=== PATIENT | male | born 1945 | race Caucasian/White ===

== ENCOUNTER 2024-12-06 15:19 | Inpatient (IN) | payer MEDICARE ==
[~2024-12-06] VITALS: Ht 180.3 cm; Wt 94.3 kg
[2024-12-06 11:14] VITALS: BP 128/80; TEMP 97.9; O2SAT 95
[2024-12-06] MEDS: LIDOCAINE 2% 5ML JELLY UROJET TOP ONE ×2 (15:55→20:35)
[2024-12-06] MEDS: UNRESOLVED CLARIFICATION ENTRY XX SCH (16:32)
[2024-12-06 16:58] LABS: BASO # 0.1 10^3/uL (0.0-0.2); BASO % 0.3 % (0.0-1.0); EOS % 0.1 % (0.0-3.0); HEMATOCRIT 47.8 % (42.0-52.0); HEMOGLOBIN 15.7 g/dl (13.5-17.5); LYMPH % 5.8 % (24.0-44.0); MEAN CORPUSCULAR HEMOGLOBIN 30.5 pg (27.0-33.0); MEAN CORPUSCULAR HGB CONC 32.8 g/dl (32.0-36.5); MONO # 1.1 10^3/uL (0.0-0.8); MONO % 6.2 % (2.0-8.0); NEUTROPHILS # 15.1 10^3/uL (1.5-8.5); NEUTROPHILS % 86.6 % (36.0-66.0); PLATELET COUNT, AUTOMATED 152 10^3/uL (150-450); RED BLOOD COUNT 5.14 10^6/uL (4.30-6.10); WHITE BLOOD COUNT 17.5 10^3/uL (4.0-10.0)
[2024-12-06 17:08] LABS: INR 1.26; PARTIAL THROMBOPLASTIN TIME 28.5 SECONDS (24.8-34.2)
[2024-12-06 17:21] LABS: ALBUMIN 3.6 G/DL (3.2-5.2); ALKALINE PHOSPHATASE 73 U/L (40-129); ALT/SGPT 17 U/L (7.0-40); AST/SGOT 20 U/L (<34); BILIRUBIN,TOTAL 0.6 MG/DL (0.3-1.2); BLOOD UREA NITROGEN 22 MG/DL (9-23); CALCIUM LEVEL 9.7 MG/DL (8.3-10.6); CARBON DIOXIDE LEVEL 27 MMOL/L (20-31); CHLORIDE LEVEL 106 MMOL/L (98-107); GLOMERULAR FILTRATION RATE 56.4 (>35); GLUCOSE, FASTING 161 MG/DL (74-106); POTASSIUM SERUM 4.5 MMOL/L (3.5-5.1); SODIUM LEVEL 143 MMOL/L (136-145); TOTAL PROTEIN 7.1 G/DL (5.7-8.2)
[2024-12-06] MEDS ORDERED: MAGN400T2 PO (18:35)
[2024-12-06] MEDS ORDERED: CARV6.25 PO (18:35)
[2024-12-06] MEDS ORDERED: AVOD0.5C PO (18:35)
[2024-12-06] MEDS ORDERED: COLE625T17 PO (18:35)
[2024-12-06] MEDS ORDERED: D200CAP3 PO (18:35)
[2024-12-06] MEDS ORDERED: ELIQ5TAB PO (18:35)
[2024-12-06] MEDS ORDERED: INVO1TAB4 PO (18:35)
[2024-12-06] MEDS ORDERED: DIGO0.253 PO (18:35)
[2024-12-06] MEDS ORDERED: OMEG10002 PO (18:35)
[2024-12-06] MEDS ORDERED: PRAV20TA2 PO (18:35)
[2024-12-06] MEDS ORDERED: VITATAB73 PO (18:35)
[2024-12-06] MEDS ORDERED: FLOM0.4C39 PO (18:35)
[2024-12-06] MEDS ORDERED: LOSA25TA13 PO (18:35)
[2024-12-06] MEDS ORDERED: PANT40TA29 PO (18:35)
[2024-12-06] MEDS ORDERED: GABA-1490 PO (18:35)
[2024-12-06] MEDS ORDERED: HOME MED LIST COMPLETE! XX SCH (18:40)
[2024-12-06] MEDS ORDERED: MAALOX 30 ML SUSP *UDC PO PRN (19:15)
[2024-12-06] MEDS ORDERED: GLUCOSE 4 GM CHEW PO PRN (19:15)
[2024-12-06] MEDS ORDERED: GLUCAGON INJ 1MG VIAL SC PRN (19:15)
[2024-12-06] MEDS ORDERED: ACETAMINOPHEN 325 MG TAB PO PRN (19:15)
[2024-12-06] MEDS ORDERED: DEXTROSE 50% 50ML SYRINGE IV PRN (19:15)
[2024-12-06 20:12] LABS: CPK CREATINE PHOSPHOKINASE 62 U/L (46-171)
[2024-12-06 20:13] LABS: CK-MB VALUE MASS < 1.0 NG/ML (<3.6); MAGNESIUM LEVEL 2.1 MG/DL (1.8-2.4); MB/CK RELATIVE INDEX 1.61 (< OR =4)
[2024-12-06 20:14] LABS: C REACTIVE PROTEIN QUANTITATIV 1.83 MG/DL (<1.0); DIGOXIN LEVEL 0.7 NG/ML (0.8-2.0)
[2024-12-06 20:54] LABS: CPK CREATINE PHOSPHOKINASE 41 U/L (46-171)
[2024-12-06] MEDS: INSULIN LISPRO (NovoLOG) PER UNIT SC SCH (21:00)
[2024-12-06] MEDS: DOCUSATE SODIUM 100MG CAPSULE PO SCH (21:00)
[2024-12-06] MEDS: GABAPENTIN 300 MG CAP PO SCH (21:28)
[2024-12-06] MEDS: MAGNESIUM OXIDE 400MG TAB (MAG-OX) PO SCH (21:29)
[2024-12-06] MEDS: TAMSULOSIN 0.4 MG CAP PO SCH (21:29)
[2024-12-06] MEDS: PRAVASTATIN 20 MG TAB PO SCH (21:29)
[2024-12-06] MEDS: CARVedilol 6.25 MG TAB PO SCH (21:29)
[2024-12-06 21:33] LABS: CK-MB VALUE MASS < 1.0 NG/ML (<3.6); MB/CK RELATIVE INDEX 2.43 (< OR =4)
[2024-12-06] MEDS: DUTASTERIDE 0.5 MG CAP (AVODART) PO SCH (21:55)
[2024-12-06] MEDS: OMEGA-3 1000MG CAPSULE PO SCH (21:55)
[2024-12-07 06:42] LABS: HEMOGLOBIN 13.9 g/dl (13.5-17.5); MEAN CORPUSCULAR HEMOGLOBIN 30.3 pg (27.0-33.0); MEAN CORPUSCULAR HGB CONC 33.1 g/dl (32.0-36.5); MEAN CORPUSCULAR VOLUME 91.7 fl (80.0-96.0); PLATELET COUNT, AUTOMATED 146 10^3/uL (150-450); RED BLOOD COUNT 4.58 10^6/uL (4.30-6.10); WHITE BLOOD COUNT 15.6 10^3/uL (4.0-10.0)
[2024-12-07 06:57] LABS: ALBUMIN 3.1 G/DL (3.2-5.2); ALKALINE PHOSPHATASE 60 U/L (40-129); ALT/SGPT 14 U/L (7.0-40); AST/SGOT 13 U/L (<34); BILIRUBIN,TOTAL 0.7 MG/DL (0.3-1.2); BLOOD UREA NITROGEN 20 MG/DL (9-23); CALCIUM LEVEL 9.2 MG/DL (8.3-10.6); CARBON DIOXIDE LEVEL 26 MMOL/L (20-31); CHLORIDE LEVEL 106 MMOL/L (98-107); CREATININE FOR GFR 1.15 MG/DL (0.70-1.30); GLOMERULAR FILTRATION RATE > 60.0 (>35); GLUCOSE, FASTING 155 MG/DL (74-106); MAGNESIUM LEVEL 1.9 MG/DL (1.8-2.4); POTASSIUM SERUM 4.1 MMOL/L (3.5-5.1); SODIUM LEVEL 143 MMOL/L (136-145); TOTAL PROTEIN 6.4 G/DL (5.7-8.2)
[2024-12-07] MEDS: INSULIN LISPRO (NovoLOG) PER UNIT SC SCH (08:41)
[2024-12-07] MEDS: COLESEVELAM 625 MG TAB (WELCHOL) PO SCH (08:42)
[2024-12-07] MEDS: PANTOPRAZOLE 40MG TAB (PROTONIX) PO SCH (08:42)
[2024-12-07] MEDS: DIGOXIN 0.125 MG TAB PO SCH (08:42)
[2024-12-07] MEDS: DIGOXIN INJ 0.5 MG/2 ML AMP IV ONE (10:12)
[2024-12-07 11:14] VITALS: BP 128/80; TEMP 97.9; O2SAT 95
[2024-12-07] MEDS ORDERED: LevoFLOXacin IV 750 MG in IV 1 EA IV SCH (13:00)
[2024-12-07] MEDS: METOPROLOL TART 12.5 MG PER 1/2 TAB PO SCH (13:12)
[2024-12-07] MEDS: LevoFLOXacin 750 MG TABLET PO SCH (15:20)
[2024-12-07 20:30] VITALS: BP 121/61; TEMP 98.6; O2SAT 90
[2024-12-08 01:40] VITALS: O2SAT 86
[2024-12-08 01:42] VITALS: O2SAT 92
[2024-12-08 05:10] VITALS: BP 144/93; TEMP 97.5; O2SAT 99
[2024-12-08 06:08] LABS: BASO % 0.2 % (0.0-1.0); EOS % 0.1 % (0.0-3.0); HEMATOCRIT 37.6 % (42.0-52.0); HEMOGLOBIN 12.4 g/dl (13.5-17.5); LYMPH % 7.4 % (24.0-44.0); MEAN CORPUSCULAR HEMOGLOBIN 30.2 pg (27.0-33.0); MEAN CORPUSCULAR VOLUME 91.5 fl (80.0-96.0); MONO # 1.1 10^3/uL (0.0-0.8); MONO % 7.6 % (2.0-8.0); NEUTROPHILS # 11.6 10^3/uL (1.5-8.5); NEUTROPHILS % 83.5 % (36.0-66.0); PLATELET COUNT, AUTOMATED 126 10^3/uL (150-450); RED BLOOD COUNT 4.11 10^6/uL (4.30-6.10); WHITE BLOOD COUNT 13.9 10^3/uL (4.0-10.0)
[2024-12-08 06:25] LABS: CALCIUM LEVEL 8.9 MG/DL (8.3-10.6); CREATININE FOR GFR 1.27 MG/DL (0.70-1.30); GLOMERULAR FILTRATION RATE 57.9 (>35); POTASSIUM SERUM 3.8 MMOL/L (3.5-5.1)
[2024-12-08 11:19] VITALS: BP 129/72; TEMP 97.7; O2SAT 94
[2024-12-08 19:30] VITALS: BP 108/59; TEMP 97.9; O2SAT 91
[2024-12-08] MEDS: MOM 30ML SUSPENSION UDC PO PRN (22:51)
[2024-12-09 01:51] VITALS: O2SAT 85
[2024-12-09 01:52] VITALS: O2SAT 92
[2024-12-09 03:10] VITALS: BP 104/56; TEMP 98.1; O2SAT 94
[2024-12-09 05:59] LABS: BASO # 0.1 10^3/uL (0.0-0.2); BASO % 0.5 % (0.0-1.0); EOS % 0.4 % (0.0-3.0); HEMATOCRIT 36.8 % (42.0-52.0); HEMOGLOBIN 12.3 g/dl (13.5-17.5); LYMPH # 1.4 10^3/uL (1.5-5.0); LYMPH % 13.1 % (24.0-44.0); MEAN CORPUSCULAR HEMOGLOBIN 30.1 pg (27.0-33.0); MEAN CORPUSCULAR HGB CONC 33.4 g/dl (32.0-36.5); MEAN CORPUSCULAR VOLUME 90.2 fl (80.0-96.0); MONO # 1.1 10^3/uL (0.0-0.8); MONO % 10.5 % (2.0-8.0); NEUTROPHILS # 8.1 10^3/uL (1.5-8.5); NEUTROPHILS % 74.3 % (36.0-66.0); PLATELET COUNT, AUTOMATED 117 10^3/uL (150-450); RED BLOOD COUNT 4.08 10^6/uL (4.30-6.10); WHITE BLOOD COUNT 10.9 10^3/uL (4.0-10.0)
[2024-12-09 06:19] LABS: BLOOD UREA NITROGEN 20 MG/DL (9-23); CALCIUM LEVEL 8.8 MG/DL (8.3-10.6); CARBON DIOXIDE LEVEL 30 MMOL/L (20-31); CHLORIDE LEVEL 102 MMOL/L (98-107); CREATININE FOR GFR 1.11 MG/DL (0.70-1.30); GLOMERULAR FILTRATION RATE > 60.0 (>35); GLUCOSE, FASTING 132 MG/DL (74-106); POTASSIUM SERUM 3.7 MMOL/L (3.5-5.1); SODIUM LEVEL 138 MMOL/L (136-145)
[2024-12-09 07:45] VITALS: O2SAT 92
[2024-12-09 12:00] VITALS: BP 116/70; TEMP 97.2; O2SAT 96
[2024-12-09 19:40] VITALS: BP 118/73; TEMP 97.5; O2SAT 93
[2024-12-10 00:20] VITALS: BP 105/60; TEMP 97.4; O2SAT 96
[2024-12-10 03:10] VITALS: BP 119/68; TEMP 97.5; O2SAT 91
[2024-12-10 05:49] LABS: BASO % 0.5 % (0.0-1.0); EOS # 0.1 10^3/uL (0.0-0.5); EOS % 1.2 % (0.0-3.0); HEMOGLOBIN 12.1 g/dl (13.5-17.5); LYMPH # 1.2 10^3/uL (1.5-5.0); LYMPH % 14.6 % (24.0-44.0); MEAN CORPUSCULAR HEMOGLOBIN 30.3 pg (27.0-33.0); MEAN CORPUSCULAR HGB CONC 33.6 g/dl (32.0-36.5); MEAN CORPUSCULAR VOLUME 90.2 fl (80.0-96.0); MONO # 1.1 10^3/uL (0.0-0.8); MONO % 13.5 % (2.0-8.0); NEUTROPHILS # 5.7 10^3/uL (1.5-8.5); NEUTROPHILS % 68.8 % (36.0-66.0); PLATELET COUNT, AUTOMATED 123 10^3/uL (150-450); RED BLOOD COUNT 3.99 10^6/uL (4.30-6.10); WHITE BLOOD COUNT 8.4 10^3/uL (4.0-10.0)
[2024-12-10 06:17] LABS: BLOOD UREA NITROGEN 20 MG/DL (9-23); CALCIUM LEVEL 8.6 MG/DL (8.3-10.6); CARBON DIOXIDE LEVEL 29 MMOL/L (20-31); CHLORIDE LEVEL 103 MMOL/L (98-107); CREATININE FOR GFR 0.96 MG/DL (0.70-1.30); GLOMERULAR FILTRATION RATE > 60.0 (>35); GLUCOSE, FASTING 137 MG/DL (74-106); POTASSIUM SERUM 3.7 MMOL/L (3.5-5.1); SODIUM LEVEL 139 MMOL/L (136-145)
[2024-12-10 12:29] VITALS: BP 123/72; TEMP 97.5; O2SAT 95
[2024-12-10] MEDS ORDERED: LEVO75TAB PO (13:33)
[2024-12-11 03:34] VITALS: BP 118/70; TEMP 97.7; O2SAT 94
[2024-12-11 05:31] LABS: BASO % 0.4 % (0.0-1.0); EOS # 0.1 10^3/uL (0.0-0.5); HEMOGLOBIN 11.9 g/dl (13.5-17.5); LYMPH # 1.4 10^3/uL (1.5-5.0); LYMPH % 19.7 % (24.0-44.0); MEAN CORPUSCULAR HGB CONC 33.1 g/dl (32.0-36.5); MEAN CORPUSCULAR VOLUME 90.7 fl (80.0-96.0); MONO # 0.8 10^3/uL (0.0-0.8); MONO % 10.9 % (2.0-8.0); NEUTROPHILS # 4.7 10^3/uL (1.5-8.5); PLATELET COUNT, AUTOMATED 123 10^3/uL (150-450); RED BLOOD COUNT 3.97 10^6/uL (4.30-6.10); WHITE BLOOD COUNT 7.2 10^3/uL (4.0-10.0)
[2024-12-11 05:41] VITALS: BP 116/69
[2024-12-11 05:48] LABS: BLOOD UREA NITROGEN 21 MG/DL (9-23); CALCIUM LEVEL 8.9 MG/DL (8.3-10.6); CARBON DIOXIDE LEVEL 30 MMOL/L (20-31); CHLORIDE LEVEL 105 MMOL/L (98-107); CREATININE FOR GFR 0.95 MG/DL (0.70-1.30); GLOMERULAR FILTRATION RATE > 60.0 (>35); GLUCOSE, FASTING 158 MG/DL (74-106); POTASSIUM SERUM 3.8 MMOL/L (3.5-5.1); SODIUM LEVEL 142 MMOL/L (136-145)
== END 2024-12-11 10:11 | disposition home or self-care (01) | DRG 920 ==
LOC: EDBD 15:19 → M ED 15:19 → M ED INP 19:13 → M MSPAV 12-07 11:02
PROVIDERS: ADMIT Family Medicine; ATTEND Student in an Organized Health Care Education/Training Program
DX: N99.820 Postprocedural hemorrhage of a genitourinary system organ or structure following a genitourinary system procedure (principal); I48.21 Permanent atrial fibrillation; N39.0 Urinary tract infection, site not specified; R31.9 Hematuria, unspecified; E11.42 Type 2 diabetes mellitus with diabetic polyneuropathy; J44.9 Chronic obstructive pulmonary disease, unspecified; I50.9 Heart failure, unspecified; I11.0 Hypertensive heart disease with heart failure; K59.00 Constipation, unspecified; E78.5 Hyperlipidemia, unspecified; N40.0 Benign prostatic hyperplasia without lower urinary tract symptoms; R33.9 Retention of urine, unspecified; Z79.01 Long term (current) use of anticoagulants; Z88.0 Allergy status to penicillin; Z79.899 Other long term (current) drug therapy